=== PATIENT | male | born 2000 | race Caucasian/White ===

== ENCOUNTER 2018-02-03 20:38 | Inpatient (IN) | payer OTHER ==
[~2018-02-03] VITALS: Ht 185.4 cm; Wt 78.8 kg
[2018-02-03 21:05] LABS: BASO # 0.1 (0.0-0.2); BASO % 0.7 % (0.0-2.0); EOS # 0.2 (0.0-0.7); EOS % 1.9 % (0-4.0); GRAN # 4.7 (1.4-6.5); GRAN % 53.1 % (42.2-75.2); HEMATOCRIT 45.4 % (36.0-47.0); HEMOGLOBIN 15.4 g/dl (12.5-16.1); LYMPH # 3.1 (1.2-3.4); LYMPH % 35.2 % (20.0-51.0); MEAN CELL VOLUME 93 fl (80.0-95.0); MEAN CORPUSCULAR HEMOGLOBIN 31 pg (26.0-32.0); MEAN CORPUSCULAR HGB CONC 34 g/dl (33.0-37.0); MEAN PLATELET VOLUME 10.4 fl (7.4-10.4); MONO # 0.8 (0.1-0.6); MONO % 8.9 % (1.7-9.3); PLATELET COUNT 183 K/mm3 (130-400); REDCELL DISTRIBUTION WIDTH-CV 11.5 % (11.5-14.5)
[2018-02-03 21:15] LABS: ALBUMIN 4.8 gm/dL (3.5-5.0); CALCIUM 8.9 mg/dL (8.4-10.2); CREATININE, serum 0.7 mg/dL (0.66-1.25); POTASSIUM 3.4 mmol/L (3.4-5.0); TOTAL PROTEIN 7.8 gm/dL (6.4-8.2)
[2018-02-03 23:48] VITALS: BP 117/67; PULSE 83; TEMP 97.8
[2018-02-04 02:07] VITALS: BP 114/48; PULSE 96; TEMP 98.9
[2018-02-04 05:31] VITALS: BP 109/54; PULSE 62; TEMP 98.1
[2018-02-04 09:47] VITALS: BP 111/67; PULSE 65; TEMP 98.1
[2018-02-04] MEDS ORDERED: PERCOCET 325 MG1 TA2 PO (10:55)
[2018-02-04] MEDS ORDERED: MOTRIN 600600 MG/TAB PO (10:55)
== END 2018-02-04 12:55 | disposition home or self-care (01) | DRG 935 ==
LOC: COL.ER 20:38 → SURG 21:34
PROVIDERS: Emergency Medicine
DX: T24.232A Burn of second degree of left lower leg, initial encounter (principal); T24.231A Burn of second degree of right lower leg, initial encounter; T31.0 Burns involving less than 10% of body surface; X03.8XXA Other exposure to controlled fire, not in building or structure, initial encounter; F10.129 Alcohol abuse with intoxication, unspecified; Y90.6 Blood alcohol level of 120-199 mg/100 ml
CPT/HCPCS: J2270; J7030